=== PATIENT | female | born 1940 | race Caucasian/White ===

== ENCOUNTER 2020-08-20 04:45 | Day surgery (SDC) | payer OTHER ==
[~2020-08-20 04:45] MED LIST: SYNTHROID75 MCG
== END 2020-08-20 10:30 | disposition home or self-care (01) ==
LOC: CIR.AMB 04:45
PROVIDERS: ATTEND Specialist
DX: C50.812 Malignant neoplasm of overlapping sites of left female breast (principal); Z20.822 Contact with and (suspected) exposure to COVID-19

== ENCOUNTER 2022-06-20 10:16 | Emergency (ER) | payer OTHER ==
[~2022-06-20] VITALS: Ht 152.4 cm; Wt 61.2 kg
== END 2022-06-20 17:01 | disposition home or self-care (01) ==
LOC: ER 10:16
DX: M06.9 Rheumatoid arthritis, unspecified (principal)